=== PATIENT | male | born 1985 | race Caucasian/White ===

== ENCOUNTER 2019-07-17 11:22 | Emergency (ER) | payer SELFPAY ==
[2019-07-17] MEDS ORDERED: HYDROCODONE/ACETAMINOPHEN 10-325 MG TABLET PO ONE (11:38)
--- NOTE | 2019-07-17 11:45 | ER Document Report ---
ED Medical Screen (RME) - General Chief Complaint: Hand Injury Stated Complaint: HAND JURY - LEFT Time Seen by Provider: 07/17/19 11:32 Mode of Arrival: Ambulatory Information source: Patient - HPI Notes: 07/17/19 11:38 34-year-old male presents to the ED for evaluation of left second distal phalanx laceration from a table saw proximately 2 hours ago. Pain is 7 out of 10, thro bbing aching. Bleeding is controlled. Tetanus is up-to-date, did receive the last year. No [id number] medications have been tried. Patient is right- hand dominant. Patient states is unable to bend his affected finger. Denies any fevers or chills. PHYSICAL EXAMINATION: Vital signs reviewed. GENERAL: Well-appearing, well-nourished and in no acute distress. HEAD: Atraumatic, normocephalic. NECK: Normal range of motion CV: Heart regular rate and rhythm LUNGS: No respiratory distress Musculoskeletal: Normal range of motion. left 2nd distal phalanx with a complex laceration on volar aspect, approx 1/3 of finger. cap refill < 3 seconds. no pain to wrist. radial pulses + 2 BUE equally. Negative kanavels sign. No open wounds or drainage from wrist. No vascular compromise. NEUROLOGICAL: Normal speech MDM: Patient seen and examined for rapid initial assessment. Vital signs reviewed. A comprehensive ED assessment and evaluation of the patient, analysis of test results and completion of the medical decision making process will be conducted by additional ED providers. *Note is created using voice recognition software and may contain spelling, syntax or grammatical errors. - Related Data Allergies/Adverse Reactions: No Known Allergies Allergy (Unverified 07/17/19 11:29) Physical Exam - Vital signs Vitals: Temp Pulse Resp BP Pulse Ox 97.9 F 96 18 140/90 H 100 07/17/19 11:28 07/17/19 11:28 07/17/19 11:28 07/17/19 11:28 07/17/19 11:28 Course - Vital Signs Vital signs: Temp Pulse Resp BP Pulse Ox 97.9 F 96 18 140/90 H 100 07/17/19 11:28 07/17/19 11:28 07/17/19 11:28 07/17/19 11:28 07/17/19 11:28
--- NOTE | 2019-07-17 11:59 | RADIOLOGY REPORT (SQ) ---
EXAM DESCRIPTION: FINGER LEFT COMPLETED DATE/TIME: 07/17/2019 11:51 am REASON FOR STUDY: 2nd distal phalanx lac, r/o fb/fx from saw COMPARISON: None. NUMBER OF VIEWS: Three views. TECHNIQUE: AP, lateral, and oblique images acquired of the left second finger. LIMITATIONS: None. FINDINGS: MINERALIZATION: Normal. BONES: No acute fracture or dislocation. No worrisome bone lesions. SOFT TISSUES: Soft tissue defect along the radial aspect of the distal 2nd phalanx. OTHER: No other significant finding. IMPRESSION: No acute bony abnormality. No radiopaque foreign body. Soft tissue defect along the distal 2nd digit. TECHNICAL DOCUMENTATION: JOB ID: [id number] [employer]- All Rights Reserved Reading location - IP/workstation name: [email or web address]
--- NOTE | 2019-07-17 12:35 | ER Document Report ---
ED General - General Chief Complaint: Finger Injury Stated Complaint: HAND JURY - LEFT Time Seen by Provider: 07/17/19 11:32 Mode of Arrival: Ambulatory Information source: Patient Notes: 34-year-old male presents emergency department with laceration to his left 2nd digit dip from a new table saw approximately 3 to 4 hours ago. Reports his tetanus was up-to-date. Reports the end of his finger feels numb and is unable to bend at the DIP. Bleeding controlled. - HPI Onset: Just prior to arrival Onset/Duration: Persistent Severity: Severe Associated symptoms: None Exacerbated by: Movement Relieved by: Denies Similar symptoms previously: No Recently seen / treated by doctor: No - Related Data Allergies/Adverse Reactions: No Known Allergies Allergy (Unverified 07/17/19 11:29) Past Medical History - General Information source: Patient - Social History Smoking Status: Current Every Day Smoker Chew tobacco use (# tins/day): No Frequency of alcohol use: Occasional Drug Abuse: None Occupation: Construction Lives with: Family Family History: None Patient has suicidal ideation: No Patient has homicidal ideation: No - Medical History Medical History: Negative Surgical Hx: Negative Review of Systems - Review of Systems Notes: Review HPI for review of systems., All other systems negative Physical Exam - Vital signs Vitals: Temp Pulse Resp BP Pulse Ox 97.9 F 96 18 140/90 H 100 07/17/19 11:28 07/17/19 11:28 07/17/19 11:28 07/17/19 11:28 07/17/19 11:28 - Notes Notes: PHYSICAL EXAMINATION: GENERAL: nontoxic looking, anxious HEAD: Atraumatic, normocephalic. EYES: extraocular movements intact, sclera anicteric, conjunctiva are normal. ENT: nares patent, Moist mucous membranes. NECK: Normal range of motion, supple LUNGS: Respiratory rate even unlabored HEART: Regular rate ABDOMEN: no c/o pain EXTREMITIES: reports tip of left index finger numb. cap refill <2 sec. good radial pulse NEUROLOGICAL: Cranial nerves grossly intact. Normal sensory/motor exams. PSYCH: Normal mood, normal affect. SKIN: Warm, Dry, normal turgor, laceration to left DIP ~1.5 cm irregular - Skin Skin Temperature: Warm Skin Moisture: Dry Skin irregularity: Laceration Location of irregularity: Extremities - left index finger Course - Re-evaluation Re-evalutation: 07/17/19 14:55 34-year-old male presented to the emergency department with laceration left palmar index finger DIP. Reports he was working with a new table saw and cut his finger. Jagged irregular laceration noted approximately 1.5 to 2 cm. No fingernail injury. Reports his tetanus is up-to-date. Patient complains of numbness to the tip of his finger. Cap refill less than 3 seconds. He also complains of having a difficult time flexing his finger. Wound was cleaned fairly well first soaked in normal saline [place] and then scrubbed well. No tendon injury noted. Closed with 5-0 nylon. Patient was instructed on the importance of monitoring the finger for signs of infection. He was instructed on signs of infection. He was also instructed on the importance of follow-up with orthopedic for recheck. He verbalized understanding to all instructions. Finger X-Ray 07/17/19 11:39 IMPRESSION: No acute bony abnormality. No radiopaque foreign body. Soft tissue defect along the distal 2nd digit. 07/17/19 19:30 Dictation of this chart was performed using voice recognition software; therefore, there may be some unintended grammatical errors. - Vital Signs Vital signs: Temp Pulse Resp BP Pulse Ox 98.2 F 62 12 141/91 H 99 07/17/19 15:00 07/17/19 15:00 07/17/19 15:00 07/17/19 15:00 07/17/19 15:00 - Diagnostic Test Radiology reviewed: Image reviewed, Reports reviewed Procedures - Immobilization Left 2nd digit Immobilizer type: Finger splint (Static) Performed by: PCT Post-Proc Neuro Vasc Exam: Unchanged from pre-exam Alignment checked and good: Yes - Laceration/Wound Repair Left 2nd digit Time completed: 14:54 Wound length (cm): 1.5 Wound's Depth, Shape: Irregular Laceration pre-procedure: Shur-Clens applied Anesthetic type: 1% Lidocaine Volume Anesthetic (mLs): 2 Wound explored: Clean Wound Repaired With: Sutures Suture Size/Type: 5:0, Nylon Number of Sutures: 7 Hands front picture: 1 - Irregular jagged laceration soaked in normal saline and Shur-Clens cleaned really well, finger web space block done, pt tolerated procedure well. laceration closed with 5'0 nylon, 7 sutures, splint placed Discharge - Discharge Clinical Impression: Finger laceration Qualifiers: Encounter type: initial encounter Finger: index finger Damage to nail status: w ithout damage Foreign body presence: without foreign body Laterality: left Qualified Code(s): S61.211A - Laceration without foreign body of left index finger without damage to nail, initial encounter Condition: Stable Disposition: HOME, SELF-CARE Instructions: Laceration Care ([facility]), Oral Narcotic Medication ([facility]), Soap Cleansing ([facility]) Additional Instructions: *You have been treated for a finger laceration *Take medication as prescribed *Monitor the site for signs of infection such as increasing pain, redness, swelling, warmth *Keep the finger clean *Follow up with your primary care provider within one week for referral to orthopedics *Follow-up here in 14 days for suture removal *Return earlier to ED for signs of infection, worsening condition, changes, needs Monitor your blood pressure. Your blood pressure was elevated today. This may be because you were anxious, in pain or because you need medication. It is important to follow up with your primary care provider for full evaluation. Prescriptions: Oxycodone HCl/Acetaminophen [Percocet 5-325 mg Tablet] 1 tab PO ASDIR PRN #10 tablet PRN Reason: Forms: Elevated Blood Pressure
[2019-07-17] MEDS ORDERED: OXYCODONE-ACETAMINOPHEN 5-325 MG TABLET PO ONE (12:39)
[2019-07-17] MEDS ORDERED: LIDOCAINE 1% INJ-PF (10 MG/ML) 30 ML SDV INJ ONE (13:37)
[2019-07-17 15:29] VITALS: BP 141/91
== END 2019-07-17 15:00 | disposition home or self-care (01) ==
LOC: ER 11:22
DX: S61.211A Laceration without foreign body of left index finger without damage to nail, initial encounter (principal); R20.0 Anesthesia of skin; W29.8XXA Contact with other powered hand tools and household machinery, initial encounter; Y93.89 Activity, other specified; F17.200 Nicotine dependence, unspecified, uncomplicated
CPT/HCPCS: 99283; 73140; 12001; J3490

== ENCOUNTER 2020-02-10 13:02 | Emergency (ER) | payer OTHER ==
[2020-02-10 13:21] VITALS: BP 127/83
[2020-02-10] MEDS ORDERED: IBUPROFEN 800 MG TABLET PO ONE (13:59)
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
== END 2020-02-10 15:35 | disposition home or self-care (01) ==
LOC: ER 13:02
DX: M54.5 Low back pain (principal); V43.62XA Car passenger injured in collision with other type car in traffic accident, initial encounter
CPT/HCPCS: 72110; 99283